=== PATIENT | male | born 1995 | race Two or more races ===

== ENCOUNTER 2025-04-18 15:30 | Emergency (ER) | payer MEDICAID, OTHER ==
[~2025-04-18] VITALS: Ht 185.4 cm; Wt 82.0 kg
--- NOTE | 2025-04-18 15:46 | ED.PDOC ---
HPI Comments 30 year old male presents to the ED via EMS with a chief complaint of chest pain onset today. Per EMS, patient used Fentanyl yesterday, was taken to a rehabilitation home, left this morning. He began experiencing sharp chest pain, rates pain 10/10 as well as shortness of breath. Denies suicidal ideation, homicidal ideation, dizziness, nausea, vomiting, diarrhea,abdominal pain, fevers, chills. No other symptoms or modifying factors present at this time. Chief Complaint: Chest Pain Time Seen by MD: 15:40 Primary Care Provider: NONE Reviewed Notes: Medications, Allergies Allergies: Coded Allergies: NO KNOWN ALLERGIES (Unverified , 09/23/15) Information Source: Patient, Emergency Med Personnel Mode of Arrival: EMS Severity: Moderate Timing: Hours Duration: Since onset Prehospital treatment: None Location: Chest (L) Quality: Sharp, Pressure Onset: At Rest Cardiac Risk Factors: Drugs PE Risk Factors: None History of: None Modifying Factors: Nothing Associated Signs and Symptoms: SOB Past Medical History PAST MEDICAL HISTORY: Denies Surgical History: Denies all surgeries Family History Family History: Unknown Social History Smoker: Cigarettes Alcohol: Denies ETOH Use Drugs: Other Lives In: Home Constitutional: denies: chills, diaphoresis, fatigue, fever, malaise, sweats, weakness, others EENTM: denies: blurred vision, double vision, ear bleeding, ear discharge, ear drainage, ear pain, ear ringing, eye pain, eye redness, hearing loss, mouth pain, mouth swelling, nasal discharge, nose bleeding, nose congestion, nose pain, photophobia, tearing, throat pain, throat swelling, voice changes, others Respiratory: reports: shortness of breath; denies: cough, hemoptysis, orthopnea, SOB at rest, SOB with excertion, stridor, wheezing, others Cardiovascular: reports: chest pain; denies: dizzy spells, diaphoresis, Dyspnea on exertion, edema, irregular heart beat, left arm pain, lightheadedness, palpitations, PND, syncope, others Gastrointestinal: denies: abdomen distended, abdominal pain, blood streaked bowels, constipated, diarrhea, dysphagia, difficulty swallowing, hematemesis, melena, nausea, poor appetite, poor fluid intake, rectal bleeding, rectal pain, vomiting, others Genitourinary: denies: burning, dysuria, flank pain, frequency, hematuria, incontinence, penile discharge, penile sore, pain, testicle pain, testicle swelling, urgency, others Neurological: denies: dizziness, fainting, headache, left sided numbness, left sided weakness, numbness, paresthesia, pre-existing deficit, right sided numbness, right sided weakness, seizure, speech problems, tingling, tremors, weakness, others Musculoskeletal: denies: back pain, gout, joint pain, joint swelling, muscle pain, muscle stiffness, neck pain, others Integumetry: denies: bruises, change in color, change in hair/nails, dryness, laceration, lesions, lumps, rash, wounds, others Allergic/Immunocompromised: denies: Difficulty Healing, Frequent Infections, Hives, Itching, others Hematologic/Lymphatic: denies: anemia, blood clots, easy bleeding, easy bruising, swollen glands, others Endocrine: denies: excessive hunger, excessive sweating, excessive thirst, excessive urination, flushing, intolerance to cold, intolerance to heat, unexplained weight gain, unexplained weight loss, others Psychiatric: reports: anxiety; denies: bipolar disorder, depression, hopeless, panic disorder, schizophrenia, sleepless, suicidal, others All Other Systems: Reviewed and Negative Physical Exam General Appearance: Moderate Distress, Normal HEENT: Normal ENT Inspection, Pharynx Normal, TMs Normal Neck: Full Range of Motion, Non-Tender, Normal, Normal Inspection Respiratory: Chest Non-Tender, Lungs Clear, No Accessory Muscle Use, No Respiratory Distress, Normal Breath Sounds Cardiovascular: No Edema, No JVD, No Murmur, No Gallop, Normal Peripheral Pulses, Regular Rate/Rhythm Breast Exam: Deferred Gastrointestinal: No Organomegaly, Non Tender, No Pulsatile Mass, Normal Bowel Sounds, Soft Genitalia: Deferred Pelvic: Deferred Rectal: Deferred Extremities: No calf tenderness, Normal capillary refill, Normal inspection, Normal range of motion, Non-tender, No pedal edema Musculoskeletal : Apperance: Normal Neurologic: Alert, tubing oiler II-XII nml as Tested, No Motor Deficits, Normal Affect, Normal Mood, No Sensory Deficits Cerebellar Function: Normal Reflexes: Normal Skin: Dry, Normal Color, Warm Peripheral Pulses: 3+ Radial (R), 3+ Radial (L) Lymphatic: No Adenopathy Was a procedure done? Was a procedure done?: No CP Differential Dx Differential Diagnosis: A-fib, A-Flutter, Angina, Anxiety / Panic Attack, Atrial Dysrhythmia, Electrolyte Disorder X-Ray, Labs, Meds, VS Vital Signs Date Time Temp Pulse Resp B/P (MAP) Pulse Ox O2 Delivery O2 Flow Rate FiO2 04/18/25 15:37 64 04/18/25 15:32 98.3 62 22 113/67 98 98.3 Lab Test 04/18/25 15:54 Range/Units White Blood Count 8.3 4.4-10.8 10^3/uL Red Blood Count 5.38 4.5-5.90 10^6/uL Hemoglobin 16.1 13.5-17.5 g/dL Hematocrit 46.5 41.0-53.0 % Mean Corpuscular Volume 86.5 80.0-100.0 fL Mean Corpuscular Hemoglobin 29.9 28.0-32.0 pg Mean Corpuscular Hemoglobin Concent 34.5 32.0-36.0 g/dL Red Cell Distribution Width 13.6 11.8-14.3 % Platelet Count 346 140-450 10^3/uL Mean Platelet Volume 8.3 6.9-10.8 fL Neutrophils (%) (Auto) 61.9 37.0-80.0 % Lymphocytes (%) (Auto) 22.4 10.0-50.0 % Monocytes (%) (Auto) 12.5 H 0.0-12.0 % Eosinophils (%) (Auto) 2.4 0.0-7.0 % Basophils (%) (Auto) 0.8 0.0-2.0 % Neutrophils # (Auto) 5.2 1.6-8.6 10 ^3/uL Lymphocytes # (Auto) 1.9 0.4-5.4 10 ^3/uL Monocytes # (Auto) 1.0 0-1.3 10 ^3/uL Eosinophils # (Auto) 0.2 0-0.8 10 ^3/uL Basophils # (Auto) 0.1 0-0.2 10 ^3/uL Nucleated Red Blood Cells 0.0 % Sodium Level 134 L 136-145 mmol/L Potassium Level 3.6 3.5-5.1 mmol/L Chloride Level 96 L 98-107 mmol/L Carbon Dioxide Level 29 20-31 mmol/L Anion Gap 9 5-15 Blood Urea Nitrogen 39 H 9-23 mg/dL Creatinine 1.41 H 0.700-1.30 mg/dL Glomerular Filtration Rate Calc 68 >90 mL/min BUN/Creatinine Ratio 27.7 H 10.0-20.0 Serum Glucose 108 H 74-106 mg/dL Calcium Level 10.1 8.7-10.4 mg/dL Patient alert. Very anxious. Had fentanyl. Vitals stable. EKG reviewed does not show any acute changes. Possible dehydration. Establish intravenous access. Was given fluids. Counseled patient effects of using drugs for 15 minutes. WBC within normal limits. Hemoglobin within normal limits. Explained to the patient. Was told to follow up with his primary care physician. Was told to come back if problem. Time of 1ST Reevaluation: 16:10 Reevaluation 1ST: Improved Patient Education/Counseling: Diagnosis, Treatment, Prognosis Family Education/Counseling: No Family Present SEPSIS Sepsis Screen Date sepsis recognized/suspect: Apr 18, 2025 Time Sepsis recognized/suspect: 1536 Recent Procedure: No On Antibiotic Therapy: No Respiratory Rate >20: Yes Heart Rate >90: No Temp<36 C (96.8 F) or >38.3 C: No SBP <90 or MAP <65 mmHG: No New Acute Mental Status Change: No Is the patient on CPAP, BIPAP,: No Physician Orders Electrocardigram (04/18/25 15:38) Sodium Chloride 0.9% (04/18/25 15:45) Vital Signs Date Time Temp Pulse Resp B/P (MAP) Pulse Ox O2 Delivery O2 Flow Rate FiO2 04/18/25 15:37 64 04/18/25 15:32 98.3 62 22 113/67 98 98.3 Laboratory Tests Test 04/18/25 15:54 White Blood Count 8.3 10^3/uL (4.4-10.8) Departure 1 Departure Time of Disposition: 16:43 Impression: Primary Impression: Dehydration Disposition: 01 HOME / SELF CARE / HOMELESS Condition: Good Discharged With: Self Critical Care Note Critical Care Time?: No Stability Stability form required: No Heart Score Heart Score: Heart Score Response (Comments) Value History Slightly Suspicious 0 EKG Normal 0 Age <45 0 Risk Factors No known risk factors 0 Troponin Normal limit 0 Total 0 I personally scribed for NEWTON PANDA MD ([email or web address]) on 04/18/25 at 15:46. Electronically submitted by Jade Andres ([email or web address]). NEWTON PANDA MD Apr 18, 2025 15:46
[2025-04-18 16:31] LABS: Potassium 3.6 mmol/L (3.5-5.1)
[2025-04-18 16:32] LABS: Anion Gap 9 (5-15); Calcium 10.1 mg/dL (8.7-10.4); Carbon Dioxide 29 mmol/L (20-31)
[2025-04-18 16:36] LABS: Hematocrit 46.5 % (41.0-53.0); Hemoglobin 16.1 g/dL (13.5-17.5); Mean Corpuscular Hemoglobin 29.9 pg (28.0-32.0); Mean Corpuscular Volume 86.5 fL (80.0-100.0); Nucleated Red Blood Cells % 0.0 %
[2025-04-18 16:37] LABS: BUN/Creatinine Ratio 27.7 (10.0-20.0)
[2025-04-18 16:38] LABS: Blood Urea Nitrogen 39 mg/dL (9-23); Chloride 96 mmol/L (98-107); Glucose 108 mg/dL (74-106); Sodium 134 mmol/L (136-145)
[2025-04-18] MEDS: SODIUM CHLORIDE 0.9% 1,000 ML IV ONE (16:56)
[2025-04-18 17:00] VITALS: TEMP 98.4
[2025-04-18] MEDS ORDERED: CEPH250C PO (19:39)
[2025-04-18] MEDS ORDERED: LID35TP EX (19:39)
[2025-04-18] MEDS ORDERED: ACET500T58 PO (19:39)
[2025-04-18] MEDS: ACETAMINOPHEN 500 MG TAB or CAP PO ONE (20:00)
[2025-04-18] MEDS: LIDOCAINE HCL 5 % TOP OINT 35 GM TOP ONE (20:04)
[2025-04-18] MEDS: cefTRIAXone 1GM/50ML D5W 50 ML IV ONE (20:21)
[2025-04-18] MEDS: LIDOCAINE 2% TOPICAL JELLY 5 ML URJT TOP ONE (20:21)
[2025-04-18 20:38] VITALS: BP 122/64; PULSE 71; RESP 18; O2SAT 95
[2025-04-19] MEDS ORDERED: IBU600T PO (17:13)
--- NOTE | 2025-04-20 07:54 | ECG ---
[facility] Test Date: 2025-04-18 Test Time: 15:37:19 Pat Name: ANTONINA TORO Department: [facility] ED Patient ID: [id number] Room: Gender: Pewter Finisher: luis a : 1995 Requested By: JALIL RUIZ Order Number: [id number] Reading MD: Cortez Wallis Measurements Intervals [place] Rate: 64 P: 44 [place]: 162 QRS: 80 QRSD: 102 T: 27 QT: 426 QTc: 440 Interpretive Statements Sinus rhythm Baseline wander in lead(s) II,III,aVF Electronically Signed On 04-20-2025 18:20:03 PDT by Cortez Wallis Please click the below link to view image of tracing.
== END 2025-04-18 21:47 | disposition home or self-care (01) ==
LOC: EDBD 15:30 → EDUNIT# 15:30 → ER 15:34
DX: E86.0 Dehydration (principal); R06.02 Shortness of breath; F17.210 Nicotine dependence, cigarettes, uncomplicated
CPT/HCPCS: 36415; 80048; 84484; 85025; 93005; 96361; 96365; 99284; J0696; J7030

== ENCOUNTER 2025-04-19 14:00 | Emergency (ER) | payer OTHER ==
[~2025-04-19] VITALS: Ht 185.4 cm; Wt 84.0 kg
[~2025-04-19 14:00] MED LIST: ACET500T58 PO; CEPH250C PO; LID35TP EX
[2025-04-19 15:37] VITALS: BP 107/63; PULSE 60; RESP 16; TEMP 98.3; O2SAT 98
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
[2025-04-19] MEDS: SODIUM CHLORIDE 0.9% 1,000 ML IV ONE (15:49)
--- NOTE | 2025-04-19 16:17 | DVH ---
CHEST RADIOGRAPH Indication: pain Technique: Single frontal view of the chest with 4 views of the left ribs available for evaluation. Comparison: None FINDINGS: Lines and Tubes: None Lungs: No focal consolidation. Pleura: No effusion. No pneumothorax. Cardiomediastinal contours: Unremarkable Bones: Sclerotic focus of the left proximal humerus which may represent a bone island. Moderate degen erative changes of the left AC joint. Questionable fracture of left posterior 12th rib. Chronic appe aring fracture of left transverse process of L3. IMPRESSION: No acute cardiopulmonary disease. Questionable fracture of left posterior 12th rib. Recommend correlation with point tenderness.
[2025-04-19] MEDS ORDERED: IBU600T PO (17:13)
[2025-04-19] MEDS: KETOROLAC TROMETH 30 MG/ML 1ML VIAL IV ONE (17:59)
== END 2025-04-19 18:03 | disposition home or self-care (01) ==
LOC: ER 14:00
DX: S22.32XA Fracture of one rib, left side, initial encounter for closed fracture (principal); F17.210 Nicotine dependence, cigarettes, uncomplicated; Z79.899 Other long term (current) drug therapy; V89.2XXA Person injured in unspecified motor-vehicle accident, traffic, initial encounter; Y93.01 Activity, walking, marching and hiking; Y92.89 Other specified places as the place of occurrence of the external cause; Y99.8 Other external cause status
CPT/HCPCS: 71101; 96361; 96374; 99283; J1885; J7030

== ENCOUNTER 2025-04-19 20:02 | Emergency (ER) | payer MEDICAID, OTHER ==
[~2025-04-19] VITALS: Ht 160 cm; Wt 84.0 kg
[~2025-04-19 20:02] MED LIST changes: +IBU600T PO
--- NOTE | 2025-04-19 21:16 | DVH ---
EXAM: CT HEAD WITHOUT CONTRAST INDICATION: Head injury, positive LOC TECHNIQUE: CT of the head without intravenous contrast. Radiation Dose Information: CT Dose: CTDI volume is 57.75 mGy. Dose-length product is 908.8 mGy*cm The dose indicators for CT are the volume Computed Tomography (CT) Dose Index (CTDIvol) and the Dose Length Product (DLP), and are measured in units of mGy and mGy-cm, respectively. These indicators are not patient dose, but values generated from the CT scanner acquisition factors. The report includes radiation exposure data for exposures received during this examination. COMPARISON: None FINDINGS: There is no evidence of acute intracranial hemorrhage, extra-axial collection, mass effect, midline s hift, herniation or hydrocephalus. The ventricles, sulci and cisterns are age appropriate. The jackson-white differentiation is intact. Patchy periventricular and subcortical white matter hypoattenuation is nonspecific but may be related to small vessel ischemic disease. The visualized paranasal sinuses and mastoid air cells are clear. The surrounding soft tissues and osseous structures are unremarkable. IMPRESSION: 1. No acute intracranial abnormality.
--- NOTE | 2025-04-19 21:42 | ED.PDOC ---
History of Present Illness HPI Comments 30-year-old male who presents with chief complaint of head injury. He reports on falling off a ladder 5 ft in the air and landing his head and back, yesterday, after, recently, suffering another fall injury event 3-5 days ago. Patient states that not injuring his head but did fractured his ribs during 1st injury. Now, patient endorses on having head chest pain, shortness of breath, dizziness, nausea, diarrhea, auditory hallucinations, and paranoia.. Significant history of polysubstance abuse. Patient denies having any further acute injuries and symptoms, such as weakness or lightheadedness. REVIEW OF SYSTEMS: General: No fever, no chills, or fatigue HEENT: No sore throat, no earache, no congestion, no neck pain. Cardiac: No chest pain. No palpitations. Lungs: No shortness of breath, no cough. GI: No nausea, no vomiting, no diarrhea, no constipation, no abdominal pain : No dysuria, frequency, or urgency. No hematuria. Musculoskeletal: No joint pain , no joint swelling, no extremity edema. Skin: No rash, no itching. Neuro: Positive headache, positive dizziness, no weakness Psych: Hearing voices, hallucinations, denies suicidal ideation PHYSICAL EXAM: General: Awake, alert and oriented. No acute distress. Skin: Skin in warm, dry and intact. Appropriate color for ethnicity. HEENT: The head is normocephalic and atraumatic. Conjunctivae are clear without exudates or hemorrhage. Sclera is non-icteric. EOM are intact. No signs of nystagmus. Eyelids are normal in appearance without swelling or lesions. Oral mucosa is pink and moist Neck: The neck is supple with normal range of motion. No JVD. Cardiac: Heart rate and rhythm are normal. No murmurs, gallops, or rubs are auscultated. Respiratory: No signs of respiratory distress. Lung sounds are clear in all lobes bilaterally without rales, rhonchi, or wheezes. Musculoskeletal: C-spine tenderness. Painful range of motion. Pain to left parietal scalp. Abdominal: Abdomen is soft, non-tender without distention, guarding or rigidity. Bowel sounds are present and normoactive in all four quadrants. Extremities: Upper and lower extremities are atraumatic in appearance without d eformity or edema. Neurological: The patient is awake, alert and oriented to person, place, and time with normal speech. Speech is clear. There is no facial asymmetry. Patient is able to go from a seated to a standing position without difficulty. Strength is intact. Chief Complaint: Head Injury Time Seen by MD: 21:30 Primary Care Provider: NONE Reviewed Notes: Nurses Notes, Medications, Allergies Allergies: Coded Allergies: NO KNOWN ALLERGIES (Unverified , 09/23/15) Home Meds Active Scripts Ibuprofen Micronized (MOTRIN TABLET) 600 Mg Tb, 600 MG PO TID PRN for 3 Days, #9 TAB *Black box warning-NSAIDS can increase risk of ME & hypertension, GI irritation, ulceration, bleed, perferation. Do not use post cardiac surgery. Use short duration/lowest effective dose. Prov:NEWTON PANDA MD 04/19/25 Cephalexin (KEFLEX CAPSULE) 250 Mg Cp, 500 MG PO BID for 7 Days, #14 CAP Prov:PILY CLAROS MD 04/18/25 Acetaminophen (Acetaminophen) 500 Mg Tab, 1000 MG PO TIDPRN PRN for 5 Days, #30 TAB Prov:PILY CLAROS MD 04/18/25 Lidocaine Hcl (Lidocaine) 5 % Oin, 5 % EX TIDPRN PRN for 5 Days, #60 OIN Prov:PILY CLAROS MD 04/18/25 Information Source: Patient Mode of Arrival: Ambulatory Severity: Moderate Timing: Days Duration: Since onset Prehospital treatment: Other (See HPI) Past Medical History PAST MEDICAL HISTORY: Denies Surgical History: Denies all surgeries Family History Family History: Unknown Social History Smoker: Cigarettes Alcohol: Denies ETOH Use Drugs: Heroin Lives In: Home Was a procedure done? Was a procedure done?: No Differential Dx Considerations may include: DDX includes MSK trauma, facial fractures, ICH or traumatic SAH, C-spine injury, other X-Ray, Labs, Meds, VS Vital Signs Date Time Temp Pulse Resp B/P (MAP) Pulse Ox O2 Delivery O2 Flow Rate FiO2 04/21/25 17:29 98.3 59 16 117/56 (76) 100 98.3 04/21/25 13:01 97.6 85 16 103/42 (62) 100 97.6 04/21/25 12:50 85 16 100 Room Air* 0 21 04/20/25 20:04 98.1 78 16 104/65 (78) 98 98.1 04/20/25 16:04 97.7 64 16 107/60 (76) 100 97.7 04/19/25 20:05 96.7 58 18 111/68 99 96.7 Lab Test 04/19/25 22:00 Range/Units Urine Color Yellow Yellow Urine Clarity Turbid H Clear Urine pH 6.0 5.0-9.0 Urine Specific [place] 1.036 H 1.001-1.035 Urine Protein 1+ H Negative Urine Ketones 1+ H Negative Urine Blood Negative Negative /uL Urine Nitrite Negative Negative Urine Bilirubin Negative Negative Urine Urobilinogen 2 H Negative mg/dL Urine Leukocyte Esterase 2+ Negative /uL Urine Glucose Trace Normal mg/dL Urine Opiates Screen Neg NEGATIVE Urine Fentanyl Screen Pos NEGATIVE Urine Barbiturates Screen Neg NEGATIVE Urine Phencyclidine Screen Neg NEGATIVE Urine Amphetamines Screen Pos NEGATIVE Urine Benzodiazepines Screen Neg NEGATIVE Urine Cocaine Screen Neg NEGATIVE Urine Cannabinoids Screen Neg NEGATIVE [place] [id number] Ph: [phone] DIAGNOSTIC IMAGING Diagnostic Imaging Report : [id number] Signed PATIENT: ANTONINA TORO ACCT: [id number] UNIT: [id number] : 1995 LOC: ER ROOM / BED: / AGE / SEX: 30 / M ADM STATUS: REG ER SERVICE 39 ORDERING PHYSICIAN: PILY CLAROS MD PROCEDURE(s): CS2 - CERVICAL WITHOUT CONTRAST REASON: Painful range of motion, positive C-spine tenderness ORDER NUMBER(s): [id number], ACCESSION NUMBER(s): [id number] EXAM: CT CERVICAL WITHOUT CONTRAST INDICATION: Painful range of motion, positive C-spine tenderness EXAM DATE: 04/19/2025 09:40 PM COMPARISON: CT HEAD WITHOUT CONTRAST on DOS: 04/19/25 TECHNIQUE: Multiple axial CT images of the cervical spine were obtained using bone algorithm. Axial and coronal reformatting was done. Bone and soft tissue windows were reviewed. Dose-length product is 596 mGy*cm FINDINGS: No acute compression deformity, fracture, or subluxation. No significant foraminal or central canal stenosis. The prevertebral soft tissues are not thickened. Thyroid is unremarkable. Limited sections of the lung apices demonstrate no pneumothorax. IMPRESSION: 1. No acute compression fractures or subluxation. ATED BY: MARJORIE TORRES MD DICTATED DATE/TIME: 04/19/252205 SIGNED BY: MARJORIE TORRES MD SIGNED DATE/TIME: 04/19/252205 CC: [place] [id number] Ph: [phone] DIAGNOSTIC IMAGING Diagnostic Imaging Report : [id number] Signed PATIENT: ANTONINA TORO ACCT: [id number] UNIT: [id number] : 1995 LOC: ER ROOM / BED: / AGE / SEX: 30 / M ADM STATUS: REG ER SERVICE 55 ORDERING PHYSICIAN: PILY CLAROS MD PROCEDURE(s): HWOCT - HEAD WITHOUT CONTRAST REASON: Head injury, positive LOC ORDER NUMBER(s): [id number], ACCESSION NUMBER(s): [id number] EXAM: CT HEAD WITHOUT CONTRAST INDICATION: Head injury, positive LOC TECHNIQUE: CT of the head without intravenous contrast. Radiation Dose Information: CT Dose: CTDI volume is 57.75 mGy. Dose-length product is 908.8 mGy*cm The dose indicators for CT are the volume Computed Tomography (CT) Dose Index (CTDIvol) and the Dose Length Product (DLP), and are measured in units of mGy and mGy-cm, respectively. These indicators are not patient dose, but values generated from the CT scanner acquisition factors. The report includes radiation exposure data for exposures received during this examination. COMPARISON: None FINDINGS: There is no evidence of acute intracranial hemorrhage, extra-axial collection, mass effect, midline shift, herniation or hydrocephalus. The ventricles, sulci and cisterns are age appropriate. The jackson-white differentiation is intact. Patchy periventricular and subcortical white matter hypoattenuation is nonspecific but may be related to small vessel ischemic disease. The visualized paranasal sinuses and mastoid air cells are clear. The surrounding soft tissues and osseous structures are unremarkable. IMPRESSION: 1. No acute intracranial abnormality. ATED BY: CLEMENTE PIMENTEL Jr., DO DICTATED DATE/TIME: 04/19/252112 SIGNED BY: CLEMENTE PIMENTEL Jr., SIGNED DATE/TIME: 04/19/252112 CC: PATIENT: ANTONINA TORO ACCT: [id number] UNIT: [id number] : 1995 LOC: ER ROOM / BED: / AGE / SEX: 30 / M ADM STATUS: REG ER SERVICE 39 ORDERING PHYSICIAN: PILY CLAROS MD PROCEDURE(s): CS2 - CERVICAL WITHOUT CONTRAST REASON: Painful range of motion, positive C-spine tenderness ORDER NUMBER(s): [id number], ACCESSION NUMBER(s): [id number] EXAM: CT CERVICAL WITHOUT CONTRAST INDICATION: Painful range of motion, positive C-spine tenderness EXAM DATE: 04/19/2025 09:40 PM COMPARISON: CT HEAD WITHOUT CONTRAST on DOS: 04/19/25 TECHNIQUE: Multiple axial CT images of the cervical spine were obtained using bone algorithm. Axial and coronal reformatting was done. Bone and soft tissue windows were reviewed. Dose-length product is 596 mGy*cm FINDINGS: No acute compression deformity, fracture, or subluxation. No significant foraminal or central canal stenosis. The prevertebral soft tissues are not thickened. Thyroid is unremarkable. Limited sections of the lung apices demonstrate no pneumothorax. IMPRESSION: 1. No acute compression fractures or subluxation. Time of 1ST Reevaluation: 22:00 Reevaluation 1ST: Unchanged Patient Education/Counseling: Other (Need for ED observation) Family Education/Counseling: No Family Present Change of Shift?: Yes ([address] Hagan) SEPSIS Sepsis Screen Date sepsis recognized/suspect: Apr 19, 2025 Time Sepsis recognized/suspect: 2009 Recent Procedure: No On Antibiotic Therapy: No Respiratory Rate >20: No Heart Rate >90: No Temp<36 C (96.8 F) or >38.3 C: No SBP <90 or MAP <65 mmHG: No New Acute Mental Status Change: No Is the patient on CPAP, BIPAP,: No Physician Orders Head Without Contrast (8/10/25 20:56) Cervical Without Contrast (04/19/25 21:40) * Psychiatric Consult (04/19/25 02:21) Soc Telemed Psych Consult (04/19/25 21:40) * Keyseating Machine Set Up Operator Consult (04/20/25 ) Vital Signs Date Time Temp Pulse Resp B/P (MAP) Pulse Ox O2 Delivery O2 Flow Rate FiO2 04/21/25 17:29 98.3 59 16 117/56 (76) 100 98.3 04/21/25 13:01 97.6 85 16 103/42 (62) 100 97.6 04/21/25 12:50 85 16 100 Room Air* 0 21 04/20/25 20:04 98.1 78 16 104/65 (78) 98 98.1 04/20/25 16:04 97.7 64 16 107/60 (76) 100 97.7 04/19/25 20:05 96.7 58 18 111/68 99 96.7 Departure 1 Departure Time of Disposition: 06:00 Impression: Primary Impression: Fall Additional Impression: Head injury Disposition: 30 STILL A PATIENT Condition: Stable Comments MDM: 30-year-old male who presents to the emergency department after head injury. Neuro imaging negative. No major injuries identified exam. Patient is also reporting auditory hallucinations. He is denying suicidal ideation. He is requesting admission to psychiatric facility for treatment of his symptoms. Tele psych consult placed. I reviewed and agreed with the following test results read by other providers: Head and cervical spine CT I reviewed the following notes from the pt's past medical encounters: April 19, 2025 encounter for rib fracture Critical Care Note Critical Care Time?: No Stability Stability form required: No Heart Score Heart Score: Heart Score Response (Comments) Value History N/A 0 EKG N/A 0 Age N/A 0 Risk Factors N/A 0 Troponin N/A 0 Total 0 I personally scribed for PILY CLAROS MD ([email or web address]) on 04/19/25 at 21:42. Electronically submitted by Amol Nick ([email or web address]). I personally scribed for PILY CLAROS MD ([email or web address]) on 04/20/25 at 01:45. Electronically submitted by Amol Nick ([email or web address]). I personally scribed for PILY CLAROS MD ([email or web address]) on 04/20/25 at 01:46. Electronically submitted by Amol Nick ([email or web address]). PILY CLAROS MD Apr 19, 2025 21:42
--- NOTE | 2025-04-19 22:09 | DVH ---
EXAM: CT CERVICAL WITHOUT CONTRAST INDICATION: Painful range of motion, positive C-spine tenderness EXAM DATE: 04/19/2025 09:40 PM COMPARISON: CT HEAD WITHOUT CONTRAST on DOS: 04/19/25 TECHNIQUE: Multiple axial CT images of the cervical spine were obtained using bone algorithm. Axial a nd coronal reformatting was done. Bone and soft tissue windows were reviewed. Dose-length product is 596 mGy*cm FINDINGS: No acute compression deformity, fracture, or subluxation. No significant foraminal or central canal stenosis. The prevertebral soft tissues are not thickened. Thyroid is unremarkable. Limited sections of the lung apices demonstrate no pneumothorax. IMPRESSION: 1. No acute compression fractures or subluxation.
[2025-04-19 22:15] LABS: Urine Protein, UAD 1+ (Negative)
[2025-04-19 22:27] LABS: Amphetamine Screen, Urine Pos (NEGATIVE); Barbiturate Scree,Urine Neg (NEGATIVE); Benzodiazephine Screen, Urine Neg (NEGATIVE); Cannabinoid Screen, Urine Neg (NEGATIVE); Cocaine Screen, Urine Neg (NEGATIVE); Opiate Scree,Urine Neg (NEGATIVE); Phencyclidine Screen, Urine Neg (NEGATIVE)
--- NOTE | 2025-04-20 05:10 | DVHINCON2 ---
Date of Service if different f: Apr 20, 2025 Time of Service: 04:46 Consult Consult Note PSYCHIATRY ED NEW CONSULT HPI: 30 yo pt with no PPH and PSA presents to ED BIB self for safety, psychiatric stabilization, and possible med initiation in setting of psychosis 2/2 recent PSA and s/p fall. Psychiatry consulted for safety evaluation and recommendations in context of current presentation Pt reports "i don't think my mindset is right to go home, these drugs have messed up my head and i am always paranoid, anxious, hearing voices, and confused" resulting in some interference with daily functioning. Pt admits to chronic struggles with meth, ETOH, and opiate(heroin/fentanyl) addiction including use BLOCK PILER, UDS + for amphetamines and fentanyl. Never IVDU. Never previously in any drug/etoh tx programs in past Pt also reports some depressed mood, hopelessness/helplessness, negative thoughts, low self-worth, etc although some symptoms appear chronic in nature. Also intermittent SI that are fleeting with no plan/intent. Identifies primary stress as inadequate housing, limited support system, etc. No overt manic, psychotic, MDD, cognitive, dissociative phenomena, panic, OCD, PTSD, or somatic symptoms noted Does not have active outpt MH services established at this time, has never sought outpt MH services in past. Currently not on any psychotropic agents, no prior psych med trials Single, 3 children with some contact, employed in construction, recently unhoused, limited support system noted Unknown trauma hx. Denies FH of psych hospitalizations, suicide attempts, or completed suicides Denies hx of SI/SIB/SA/PSG or prior psych hospitalizations/5150 holds. Some history of aggression/ assaultive behaviors resulting in hx of incarceration, currently on probation for DV charge. Does not have access to firearms Currently denies SI/HI/AVH. No acute safety concerns noted during encounter MSE: General Appearance/Behavior: Alert/awake; appears stated age, fair grooming/hygiene; calm/polite and cooperative, fair eye contact, no PMA/PMR Speech: coherent, rrr Thought Process: L/L/GD Thought Content: Abnormal Thoughts/Perceptions: denies dissociative symptoms Homicidality / Violent Thoughts: adamantly denies HI Suicidality: adamantly denies SI Hallucinations: denies AVTH currently Delusions: denies paranoia, persecutory, or grandiose delusions Obsessions /compulsions: None Judgment/Insight: marginal/fair Mood & Affect: "bit depressed" with mood-congruent, appropriate Orientation: oriented x 3 Attention/Concentration: appears intact Cognition: grossly intact A/P: 30 yo pt with no PPH and PSA presents to ED BIB self for safety, psychiatric stabilization, and possible med initiation in setting of psychosis 2/2 recent PSA and s/p fall. Psychiatry consulted for safety evaluation and recommendations in context of current presentation Pt currently expressing mild depressive symptoms in setting of several recent acute life stressors (recently unhoused) and continues to struggle with PSA (ETOH/opiates/meth) including use BLOCK PILER, UDS + for fentanyl and amphetamines Pt medically cleared in ED Acute safety risk is low, however pt seeks inpatient psychiatric admission for further safety, psychiatric stabilization, and possible medication initiation. Pt willing to transfer to inpt psych facility voluntarily. Does NOT meet 5150 hold criteria Primary Diagnosis: Adjustment disorder with depressed mood. PSA (ETOH/opiates/meth), moderate. R/o ASPD. R/o Malingering. R/o SIPD Recommend VOL transfer to inpt psych facility for higher level of care 1:1 sitter is NOT recommended Defer any psychotropic med initiation to accepting inpt psych facility If patient later refuses voluntary hospitalization/ requests to be discharged from ED prior to transfer or if no voluntary beds are available, pt can be safely discharged from ED WITHOUT psych reassessment or 5150 evaluation, rather SW consult for housing resources would be appropriate Pt verbalized understanding and is receptive to above tx plan This case was discussed with ED nurse/provider and all parties in agreement with above tx plan Cristóbal Henao MD Plan discussed with: Patient CRISTÓBAL HENAO MD Apr 20, 2025 05:10
[2025-04-21 12:50] VITALS: PULSE 85; RESP 16; O2SAT 100
[2025-04-21 17:29] VITALS: BP 117/56; PULSE 59; RESP 16; TEMP 98.3; O2SAT 100
== END 2025-04-21 17:35 | disposition short-term general hospital (02) ==
LOC: ER 20:02
DX: S09.8XXA Other specified injuries of head, initial encounter (principal); Z79.899 Other long term (current) drug therapy; W17.89XA Other fall from one level to another, initial encounter; Y93.89 Activity, other specified; Y92.89 Other specified places as the place of occurrence of the external cause; Y99.8 Other external cause status; F17.210 Nicotine dependence, cigarettes, uncomplicated
CPT/HCPCS: 70450; 72125; 80307; 81003